=== PATIENT | female | born 1985 | race African-American/Black ===

== ENCOUNTER 2018-12-21 05:18 | Emergency (ER) | payer SELFPAY ==
[~2018-12-21] VITALS: Ht 172.7 cm; Wt 66.0 kg
[2018-12-21 05:43] VITALS: BP 105/75
== END 2018-12-21 06:07 | disposition left against medical advice (07) ==
LOC: ER 05:18
DX: F10.129 Alcohol abuse with intoxication, unspecified (principal); Z53.21 Procedure and treatment not carried out due to patient leaving prior to being seen by health care provider; Y90.9 Presence of alcohol in blood, level not specified